=== PATIENT | female | born 1950 | race Caucasian/White ===

== ENCOUNTER 2023-01-02 09:13 | Day surgery (SDC) | payer MEDICARE ==
[~2023-01-02] VITALS: Ht 165.1 cm; Wt 97.3 kg
[2023-01-02] MEDS ORDERED: CARBATROL300 M1 PO (09:22)
[2023-01-02] MEDS ORDERED: CARBATROL PO (09:23)
[2023-01-02] MEDS ORDERED: RISE35 PO (09:24)
--- NOTE | 2023-01-02 09:29 | NUR ---
01/02/23 0929 Dayday Palumbo CALL LIGHT WITHIN REACH. TETRACAINE IN AT 0923 AND PLEDGETT IN AT 0924
== END 2023-01-02 10:42 | disposition home or self-care (01) ==
LOC: ORSCSDS 09:13
PROVIDERS: Student in an Organized Health Care Education/Training Program
PROC: 08RJ3JZ Replacement of Right Lens with Synthetic Substitute, Percutaneous Approach (ICD-10-PCS; principal; 2023-01-02 10:30)
DX: H25.13 Age-related nuclear cataract, bilateral (principal); H52.201 Unspecified astigmatism, right eye; G40.909 Epilepsy, unspecified, not intractable, without status epilepticus; Z79.899 Other long term (current) drug therapy
CPT/HCPCS: J2001; J2250; J3010; J7040; V2632